=== PATIENT | female | born 1955 | race Caucasian/White ===

== ENCOUNTER 2017-12-13 06:20 | Day surgery (SDC) | payer BC ==
[~2017-12-13] VITALS: Ht 157.5 cm; Wt 57.1 kg
[~2017-12-13 06:20] MED LIST: ASCO500; ERGO400; EZET10 PO; GEMF600; GLUC500; OCUVITE EYE +1 EACH; Penlac6.6 ML
== END 2017-12-13 08:49 | disposition home or self-care (01) ==
LOC: ORSCSDS 06:20
PROVIDERS: Surgery
PROC: 0DJD8ZZ Inspection of Lower Intestinal Tract, Via Natural or Artificial Opening Endoscopic (ICD-10-PCS; principal; 2017-12-13 08:00)
DX: Z12.11 Encounter for screening for malignant neoplasm of colon (principal); E78.5 Hyperlipidemia, unspecified; E78.1 Pure hyperglyceridemia; Z79.899 Other long term (current) drug therapy
CPT/HCPCS: J0330; J1980; J2405

== ENCOUNTER → 2018-11-25 | Outpatient (CLI) | payer BC | END | disposition home or self-care (01) | LOC: LAB SHORT 15:59 → PLD 15:59 | DX: D22.61 Melanocytic nevi of right upper limb, including shoulder (principal) | CPT/HCPCS: 88305 ==